=== PATIENT | male | born 1975 | race African-American/Black ===

== ENCOUNTER 2020-09-24 22:55 | Emergency (ER) | payer BC, SELFPAY ==
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
[2020-09-24 22:57] VITALS: BP 147/85; PULSE 86; RESP 14; TEMP 36.6; O2SAT 97
[2020-09-25 03:00] VITALS: BP 134/99; PULSE 80; RESP 14; O2SAT 100
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
[2020-09-25] MEDS: IBUPROFEN 600 MG TABLET PO (03:42)
[2020-09-25] MEDS: traMADol HCL (*CRX) 50 MG TABLET PO (03:49)
[2020-09-25 03:50] VITALS: BP 128/74; PULSE 74; RESP 17; O2SAT 97
== END 2020-09-25 03:50 | disposition home or self-care (01) ==
PROVIDERS: Emergency Provider General Practice
DX: M25.561 Pain in right knee (principal); S81.041 Puncture wound with foreign body, right knee; W34.00XS Accidental discharge from unspecified firearms or gun, sequela
CPT/HCPCS: 73564; 99283; A9270